=== PATIENT | female | born 1985 | race Caucasian/White ===

== ENCOUNTER → 2017-10-01 | Outpatient (CLI) | payer OTHER | END | disposition home or self-care (01) | LOC: LAB SHORT 13:48 → LAB 13:48 | DX: R30.0 Dysuria (principal) | CPT/HCPCS: 87077; 87086; 87186 ==

== ENCOUNTER 2018-03-31 09:47 | Day surgery (SDC) | payer OTHER ==
[~2018-03-31] VITALS: Ht 149.9 cm; Wt 76.0 kg
[~2018-03-31 09:47] MED LIST: Adipex-P37.5 MG PO; BIOTIN10000 MC1 PO; Calcium 250+D1 EACH PO; METO50ER PO; Multivitamin1 EAC1 PO; OSTEO BI-FLEX1 EAC2 PO; TOPI100 PO
[2018-03-31] MEDS ORDERED: CHOL10002 (10:37)
[2018-03-31] MEDS ORDERED: LATANOPROST 0.7.5 ML (10:40)
== END 2018-03-31 16:40 | disposition home or self-care (01) ==
LOC: ORSCSDS 09:47
PROVIDERS: Orthopaedic Surgery
PROC: 0MRP4JZ Replacement of Left Knee Bursa and Ligament with Synthetic Substitute, Percutaneous Endoscopic Approach (ICD-10-PCS; principal; 2018-03-31 10:45)
PROC: 0YPB0YZ Removal of Other Device from Left Lower Extremity, Open Approach (ICD-10-PCS; principal; 2018-03-31 10:45)
DX: S83.512A Sprain of anterior cruciate ligament of left knee, initial encounter (principal); M22.42 Chondromalacia patellae, left knee; M23.92 Unspecified internal derangement of left knee; T84.9XXA Unspecified complication of internal orthopedic prosthetic device, implant and graft, initial encounter; Z79.899 Other long term (current) drug therapy
CPT/HCPCS: 73560-LT; C1713; C1762; J0171; J0690; J1885; J2250; J2405; J2710; J2765; J3010; J7120